=== PATIENT | female | born 1970 | race Caucasian/White ===

== ENCOUNTER 2019-10-10 12:26 | Emergency (ER) | payer SELFPAY ==
[2019-10-10 12:44] VITALS: BP 135/59; PULSE 88
[2019-10-10] MEDS ORDERED: Sodium Chloride 0.9% 1,000 ML IV ONE (12:50)
--- NOTE | 2019-10-10 12:58 | EDM.PDOC ---
ED HPI GENERAL MEDICAL PROBLEM - General Chief Complaint: Skin Complaint Stated Complaint: SWELLING ON BUTTOX Time Seen by Provider: 10/10/19 12:28 Source of Information: Reports: Patient History Limitations: Reports: No Limitations - History of Present Illness INITIAL COMMENTS - FREE TEXT/NARRATIVE: 49-year-old female presents with pain to the right buttock after getting an IM Toradol injection during her last ER visit for right flank pain. Her right flank pain is localized from the right posterior flank and radiates to the right hip. It is constant and moderate in severity, and radiates into her right leg. It is exacerbated by movement and palpation. She was seen in the ER in [place] about 1 week ago and received an IM Toradol injection at her right buttock for her right flank pain. She then started noticing swelling and pain to her right buttock 3 days ago. Denies fever, chills, nausea, vomiting. 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 ROS: A 10-point review of systems, other than pertinent positives and negatives as stated per HPI, is otherwise negative PHYSICAL EXAM General: AOx4, GCS = 15, moderate distress HEENT: dry mucous membrane Neck: supple, no meningismus, no Kernig or Brudzinski Cardiac: S1S2 RRR Respiratory: CTAB, no crackles or rales, no wheezing Abdomen: Soft, nontender, no rebound or guarding, nondistended, no pulsatile mass. Back: nontender to C/T/L spine Musculoskeletal: NVI distally, no deformity, 10cm area of tender induration and fluctuance to right buttock. Neuro: No focal deficits MEDICAL DECISION MAKING: I reviewed the patients past medical records, lab and radiographic findings. I discussed the case with family members. My differential diagnosis included: abscess, cellulitis, bacteremia, ureteralithiasis. Patient has significant risk factor with her history of IVDA , I am concerned for bacteremia and sepsis. However she is choosing to leave against medical advice prior to CT imaging. I personally explained to her that choosing to do so may result in permanent bodily harm or . I discussed at great length that without further evaluation and monitoring there may be unforeseen circumstances and deterioration causing permanent bodily harm or as a result of her choice. She is alert, oriented, and competent at this time. She states that she is aware of the serious risks as explained, but she still chooses to leave against medical advice. She is aware that they did not allow us to complete her evaluation, and there is still the possibility that an emergency condition could exist. This has been thoroughly explained to her and the patient has indicated understanding of such. She is assuming all risk and liability for such a condition, or for such a condition subsequently developing. She is doing so at their own free will, with a full knowledge of the potential consequences of these actions. She was encouraged to return at any time should they experience any changes about evaluation, or should they develop any new or worsening symptoms that concerns them. right buttock Pain Score (Numeric/FACES): 8 - Related Data Allergies Allergy/AdvReac Type Severity Reaction Status Date / Time haloperidol [From Haldol] Allergy Other Verified 10/10/19 12:44 Penicillins Allergy Other Verified 10/10/19 12:44 Home Meds: Home Meds . [No Known Home Meds] 10/10/19 [History] Past Medical History HEENT History: Reports: None Cardiovascular History: Reports: None Respiratory History: Reports: None Gastrointestinal History: Reports: None Genitourinary History: Reports: None MANAGER STATISTICAL PROGRAMMING History: Reports: None Musculoskeletal History: Reports: Arthritis Neurological History: Reports: None Psychiatric History: Reports: Anxiety Endocrine/Metabolic History: Reports: None Hematologic History: Reports: None Immunologic History: Reports: None Oncologic (Cancer) History: Reports: None Dermatologic History: Reports: None - Infectious Disease History Infectious Disease History: Reports: None - Past Surgical History Head Surgeries/Procedures: Reports: None HEENT Surgical History: Reports: None Cardiovascular Surgical History: Reports: None Respiratory Surgical History: Reports: None GI Surgical History: Reports: None Female Surgical History: Reports: None Endocrine Surgical History: Reports: None Neurological Surgical History: Reports: None Musculoskeletal Surgical History: Reports: None Dermatological Surgical History: Reports: None Social & Family History - Family History Family Medical History: Noncontributory - Tobacco Use Smoking Status *Q: Current Every Day Smoker Years of Tobacco use: 30 Packs/Tins Daily: 0.5 - Caffeine Use Caffeine Use: Reports: Coffee - Recreational Drug Use Recreational Drug Use: Yes Recreational Drug Type: Reports: Marijuana/Hashish Recreational Drug Use Frequency: Daily ED ROS GENERAL - Review of Systems Review Of Systems: See Below (see dictation) ED EXAM, SKIN/RASH Exam: See Below (see dictation) Course - Vital Signs Last Recorded V/S: Last Vital Signs Temp 96.5 F L 10/10/19 12:42 Pulse 88 10/10/19 12:42 Resp 18 10/10/19 12:42 BP 135/59 L 10/10/19 12:42 Pulse Ox 99 10/10/19 12:42 - Orders/Labs/Meds Orders: Active Orders 24 hr Category Date Time Status CULTURE BLOOD [BC] Stat Lab 10/10/19 13:35 Received CULTURE BLOOD [BC] Stat Lab 10/10/19 13:50 Results UA W/MICROSCOPIC [URIN] Stat Lab 10/10/19 12:59 Ordered Blood Culture x2 Reflex Set [OM.PC] Stat Oth 10/10/19 12:50 Ordered Labs: Laboratory Tests 10/10/19 10/10/19 10/10/19 Range/Units 13:35 13:35 13:35 WBC 12.14 H (4.0-11.0) K/uL RBC 4.44 (4.30-5.90) M/uL Hgb 12.4 (12.0-16.0) g/dL Hct 37.8 (36.0-46.0) % MCV 85.1 (80.0-98.0) fL MCH 27.9 (27.0-32.0) pg MCHC 32.8 (31.0-37.0) g/dL RDW Std Deviation 40.5 (28.0-62.0) fl RDW Coeff of Silvia 13 (11.0-15.0) % Plt Count 510 H (150-400) K/uL MPV 9.60 (7.40-12.00) fL Neut % (Auto) 72.3 (48.0-80.0) % Lymph % (Auto) 19.0 (16.0-40.0) % Perry % (Auto) 6.4 (0.0-15.0) % Eos % (Auto) 2.1 (0.0-7.0) % Baso % (Auto) 0.2 (0.0-1.5) % Neut # (Auto) 8.8 H (1.4-5.7) K/uL Lymph # (Auto) 2.3 (0.6-2.4) K/uL Perry # (Auto) 0.8 (0.0-0.8) K/uL Eos # (Auto) 0.3 (0.0-0.7) K/uL Baso # (Auto) 0.0 (0.0-0.1) K/uL Nucleated RBC % 0.0 /100WBC Nucleated RBCs # 0 K/uL Lactate 1.1 (0.20-2.00) mmol/L Sodium 140 (136-145) mmol/L Potassium 3.6 (3.5-5.1) mmol/L Chloride 101 (98-107) mmol/L Carbon Dioxide 28.6 (21.0-32.0) mmol/L BUN 16 (7.0-18.0) mg/dL Creatinine 0.6 (0.6-1.0) mg/dL Est Cr Clr Drug Dosing 87.73 mL/min Estimated GFR (MDRD) > 60.0 ml/min Glucose 87 (74-106) mg/dL Calcium 9.0 (8.5-10.1) mg/dL Total Bilirubin 0.6 (0.2-1.0) mg/dL AST 16 (15-37) IU/L ALT 11 L (14-63) IU/L Alkaline Phosphatase 103 (46-116) U/L Total Protein 8.0 (6.4-8.2) g/dL Albumin 3.5 (3.4-5.0) g/dL Globulin 4.5 H (2.6-4.0) g/dL Albumin/Globulin Ratio 0.8 L (0.9-1.6) Meds: Medications Discontinued Medications Generic Name Dose Route Start Last Admin Trade Name Renata PRN Reason Stop Dose Admin Sodium Chloride 1,000 mls @ 999 mls/hr 10/10/19 12:50 10/10/19 13:40 Normal Saline IV 10/10/19 13:50 999 mls/hr .Bolus ONE Administration - Re-Assessments/Exams Free Text/Narrative Re-Assessment/Exam: 10/10/19 16:15 she is choosing to leave against medical advice prior to CT imaging. I personally explained to her that choosing to do so may result in permanent bodily harm or . I discussed at great length that without further evaluation and monitoring there may be unforeseen circumstances and deterioration causing permanent bodily harm or as a result of her choice. She is alert, oriented, and competent at this time. She states that she is aware of the serious risks as explained, but she still chooses to leave against medical advice. She is aware that they did not allow us to complete her evaluation, and there is still the possibility that an emergency condition could exist. This has been thoroughly explained to her and the patient has indicated understanding of such. She is assuming all risk and liability for such a condition, or for such a condition subsequently developing. She is doing so at their own free will, with a full knowledge of the potential consequences of these actions. She was encouraged to return at any time should they experience any changes about evaluation, or should they develop any new or worsening symptoms that concerns them. Departure - Departure Time of Disposition: 16:26 Disposition: Against Medical Advice 07 Condition: Undetermined Clinical Impression: Abscess, IV drug user, Left against medical advice - Discharge Information *PRESCRIPTION DRUG MONITORING PROGRAM REVIEWED*: Not Applicable *COPY OF PRESCRIPTION DRUG MONITORING REPORT IN PATIENT MELANIA: Not Applicable Referrals: PCP,None [Primary Care Provider] - Forms: ED Department Discharge Additional Instructions: [facility] - Primary Care [address] [place] [id number] [address] [facility] - General Surgery Professional Building [address] [place] [address], [address] [place] [address] Sepsis Event Note - Evaluation Sepsis Screening Result: No Definite Risk - Focused Exam Vital Signs: Vital Signs Temp Pulse Resp BP Pulse Ox 10/10/19 12:42 96.5 F L 88 18 135/59 L 99 Date Exam was Performed: 10/10/19 Time Exam was Performed: 16:24 - My Orders Last 24 Hours: My Active Orders 10/10/19 12:50 Blood Culture x2 Reflex Set [OM.PC] Stat 10/10/19 12:59 UA W/MICROSCOPIC [URIN] Stat 10/10/19 13:35 CULTURE BLOOD [BC] Stat 10/10/19 13:50 CULTURE BLOOD [BC] Stat - Assessment/Plan Last 24 Hours: My Active Orders 10/10/19 12:50 Blood Culture x2 Reflex Set [OM.PC] Stat 10/10/19 12:59 UA W/MICROSCOPIC [URIN] Stat 10/10/19 13:35 CULTURE BLOOD [BC] Stat 10/10/19 13:50 CULTURE BLOOD [BC] Stat
[2019-10-10 14:50] LABS: BLOOD UREA NITROGEN,BUN 16 mg/dL (7.0-18.0); CARBON DIOXIDE,CO2 28.6 mmol/L (21.0-32.0); CHLORIDE,CL 101 mmol/L (98-107); GLUCOSE RANDOM 87 mg/dL (74-106); POTASSIUM,K 3.6 mmol/L (3.5-5.1); SODIUM,NA 140 mmol/L (136-145)
== END 2019-10-10 15:44 | disposition left against medical advice (07) ==
LOC: MW.ED 12:26
DX: L02.31 Cutaneous abscess of buttock (principal); F11.10 Opioid abuse, uncomplicated; F17.210 Nicotine dependence, cigarettes, uncomplicated; Z88.8 Allergy status to other drugs, medicaments and biological substances; Z88.0 Allergy status to penicillin
CPT/HCPCS: 36415; 80053; 83605; 85025; 87040; 99284; J7030; 99282

== ENCOUNTER 2019-10-11 22:04 | Emergency (ER) | payer SELFPAY ==
[2019-10-11] MEDS ORDERED: Ondansetron 4 MG/2 ML SDV IVPUSH ONE (22:22)
[2019-10-11] MEDS ORDERED: Morphine 4 MG/ML Syringe IVPUSH ONE (22:22)
[2019-10-11] MEDS ORDERED: Sodium Chloride 0.9% 2.5 ML Syringe FLUSH PRN (22:22)
[2019-10-11] MEDS ORDERED: Ketorolac 15 MG/ML SDV IVPUSH ONE (22:22)
[2019-10-11] MEDS ORDERED: Sodium Chloride 0.9% 1,000 ML IV ONE (22:22)
[2019-10-11] MEDS ORDERED: Sodium Chloride 0.9% 10 ML Syringe FLUSH PRN (22:22)
--- NOTE | 2019-10-11 22:35 | EDM.PDOC ---
ED HPI GENERAL MEDICAL PROBLEM - General Chief Complaint: Skin Complaint Stated Complaint: ABCESS ON BUTTOCKS Time Seen by Provider: 10/11/19 22:21 Source of Information: Reports: Patient History Limitations: Reports: No Limitations - History of Present Illness INITIAL COMMENTS - FREE TEXT/NARRATIVE: History of present illness: [Patient was seen recently here and left AMA prior to full work-up being performed. They wanted to do a CT scan to determine how extensive the abscess in her butt cheek is. She left prior to this being accomplished. She presents back to the ED this evening with worsening pain and swelling over that site. She denies fever or chills, denies chest pain or shortness of breath. States that about a week ago she was in [place] and went to an ER there because she was having some lower back pain. They did a work-up including x-rays and labs and told her that she had some arthritis in her back and they gave her a Toradol shot in her right butt cheek. The area that shot developed a small bump and that eventually turned into what appears to be an abscess. Patient did not have the abscess drained on her previous visit to the emergency department, she left AMA.] Review of systems: As per history of present illness and below otherwise all systems reviewed and negative. Past medical history: As per history of present illness and as reviewed below otherwise noncontributory. Surgical history: As per history of present illness and as reviewed below otherwise noncontributory. Social history: No reported history of drug or alcohol abuse. Family history: As per history of present illness and as reviewed below otherwise noncontributory. Physical exam: General: Awake, alert, no acute distress, A&O X3. HEENT: Atraumatic, normocephalic, pupils reactive, negative for conjunctival pallor or scleral icterus, mucous membranes moist, throat clear, neck supple, nontender, trachea midline. Lungs: Clear to auscultation, breath sounds equal bilaterally, chest nontender. Heart: RRR, normal S1S2, no JVD. Abdomen: Soft, nondistended, nontender. Negative for masses or hepatosplenomegaly. Negative for costovertebral tenderness. Pelvis: Stable nontender. Genitourinary: Deferred. Rectal: Deferred. SKIN: Patient has area of tenderness, swelling, mild erythema, induration of the right butt cheek that is about 6X6 cm in size Extremities: Atraumatic, no edema, Neurovascular unremarkable. Neuro: Motor and sensory grossly intact throughout. Exam nonfocal. Diagnostics: [] Therapeutics: [] Impression: [] Plan: [] Definitive disposition and diagnosis as appropriate pending reevaluation and review of above. R buttock Pain Score (Numeric/FACES): 9 - Related Data Allergies Allergy/AdvReac Type Severity Reaction Status Date / Time haloperidol [From Haldol] Allergy Other Verified 10/11/19 22:22 Penicillins Allergy Other Verified 10/11/19 22:22 Home Meds: Home Meds Sulfamethoxazole/Trimethoprim [Bactrim Ds Tablet] 1 each PO BID #20 tablet 10/11 [Rx] cephALEXin [Keflex] 500 mg PO QID #40 cap 10/12/19 [Rx] Past Medical History HEENT History: Reports: None Cardiovascular History: Reports: None Respiratory History: Reports: None Gastrointestinal History: Reports: None Genitourinary History: Reports: None PSYCHOLOGICAL OPERATIONS History: Reports: None Musculoskeletal History: Reports: Arthritis Neurological History: Reports: None Psychiatric History: Reports: Anxiety, Bipolar, Depression Endocrine/Metabolic History: Reports: None Hematologic History: Reports: None Immunologic History: Reports: None Oncologic (Cancer) History: Reports: None Dermatologic History: Reports: None - Infectious Disease History Infectious Disease History: Reports: None - Past Surgical History Head Surgeries/Procedures: Reports: None HEENT Surgical History: Reports: None Cardiovascular Surgical History: Reports: None Respiratory Surgical History: Reports: None GI Surgical History: Reports: None Female Surgical History: Reports: None Endocrine Surgical History: Reports: None Neurological Surgical History: Reports: None Musculoskeletal Surgical History: Reports: None Dermatological Surgical History: Reports: None Social & Family History - Family History Family Medical History: Noncontributory - Tobacco Use Smoking Status *Q: Current Every Day Smoker Years of Tobacco use: 25 Packs/Tins Daily: 0.5 - Caffeine Use Caffeine Use: Reports: Coffee - Recreational Drug Use Recreational Drug Use: Yes Recreational Drug Type: Reports: Marijuana/Hashish Recreational Drug Use Frequency: Daily ED ROS GENERAL - Review of Systems Review Of Systems: Comprehensive ROS is negative, except as noted in HPI. ED EXAM, SKIN/RASH Exam: See Below (see h and p) ED SKIN PROCEDURES - I&D Skin Prep: Providone-Iodine (Betadine) Local Anesthesia: Lidocaine: 1% Plain Local Anesthetic Volume: 5cc Area Incised With: 11 Blade Drainage: Purulent, Large Amount Probed to Break Up Loculations: Yes Packed With: 1/2 in. Iodoform Sterile Dressinx4(s) Complications: No Course - Vital Signs Text/Narrative:: CT scan shows that the abscess is located in the subcutaneous tissue of the right buttocks, does not appear to extend deeper than that. She has associated cellulitis in the soft tissue on the CT which is consistent with my physical exam findings. Remainder of the work-up is largely unremarkable and reassuring. She received a dose of IV vancomycin here in the ED and I believe she is appropriate for discharge home on Bactrim and Keflex for 10 days. Informed her to have the packing removed in about 48 hours and to follow-up with PCP to get a wound check. Patient is comfortable this plan. Return precautions provided. Otherwise well-appearing and stable at discharge. Last Recorded V/S: Last Vital Signs Temp 35.9 C L 10/11/19 22:18 Pulse 89 10/12/19 01:45 Resp 17 10/12/19 01:45 BP 98/53 L 10/12/19 01:45 Pulse Ox 96 10/12/19 01:45 - Orders/Labs/Meds Orders: Active Orders 24 hr Category Date Time Status CULTURE BLOOD [BC] Stat Lab 10/11/19 22:24 Results CULTURE BLOOD [BC] Stat Lab 10/11/19 22:24 Results Sodium Chloride 0.9% [Saline Flush] Med 10/11/19 22:22 Active 10 ml FLUSH ASDIRECTED PRN Sodium Chloride 0.9% [Saline Flush] Med 10/11/19 22:22 Active 2.5 ml FLUSH ASDIRECTED PRN Blood Culture x2 Reflex Set [OM.PC] Stat Oth 10/11/19 22:22 Ordered Saline Lock Insert [OM.PC] Stat Oth 10/11/19 22:22 Ordered Medication Orders Sodium Chloride (Saline Flush) 10 ml FLUSH ASDIRECTED PRN PRN Reason: Keep Vein Open Sodium Chloride (Saline Flush) 2.5 ml FLUSH ASDIRECTED PRN PRN Reason: Keep Vein Open Labs: Laboratory Tests 10/12/19 10/12/19 10/12/19 Range/Units 00:23 00:23 00:35 WBC 12.05 H (4.0-11.0) K/uL RBC 3.60 L (4.30-5.90) M/uL Hgb 10.1 L (12.0-16.0) g/dL Hct 30.8 L (36.0-46.0) % MCV 85.6 (80.0-98.0) fL MCH 28.1 (27.0-32.0) pg MCHC 32.8 (31.0-37.0) g/dL RDW Std Deviation 37.3 (28.0-62.0) fl RDW Coeff of Silvia 12 (11.0-15.0) % Plt Count 349 (150-400) K/uL MPV 9.90 (7.40-12.00) fL Neut % (Auto) 78.4 (48.0-80.0) % Lymph % (Auto) 12.9 L (16.0-40.0) % Perry % (Auto) 7.0 (0.0-15.0) % Eos % (Auto) 1.5 (0.0-7.0) % Baso % (Auto) 0.2 (0.0-1.5) % Neut # (Auto) 9.5 H (1.4-5.7) K/uL Lymph # (Auto) 1.6 (0.6-2.4) K/uL Perry # (Auto) 0.8 (0.0-0.8) K/uL Eos # (Auto) 0.2 (0.0-0.7) K/uL Baso # (Auto) 0.0 (0.0-0.1) K/uL Lactate 1.6 (0.20-2.00) mmol/L Sodium 136 (136-145) mmol/L Potassium 3.0 L (3.5-5.1) mmol/L Chloride 102 (98-107) mmol/L Carbon Dioxide 25.7 (21.0-32.0) mmol/L BUN 13 (7.0-18.0) mg/dL Creatinine 0.6 (0.6-1.0) mg/dL Est Cr Clr Drug Dosing 87.73 mL/min Estimated GFR (MDRD) > 60.0 ml/min Glucose 101 (74-106) mg/dL Calcium 8.0 L (8.5-10.1) mg/dL Total Bilirubin 0.6 (0.2-1.0) mg/dL AST 14 L (15-37) IU/L ALT 6 L (14-63) IU/L Alkaline Phosphatase 78 (46-116) U/L Total Protein 6.8 (6.4-8.2) g/dL Albumin 2.6 L (3.4-5.0) g/dL Globulin 4.2 H (2.6-4.0) g/dL Albumin/Globulin Ratio 0.6 L (0.9-1.6) HCG, Qual (NEG) 10/12/19 Range/Units 00:35 WBC (4.0-11.0) K/uL RBC (4.30-5.90) M/uL Hgb (12.0-16.0) g/dL Hct (36.0-46.0) % MCV (80.0-98.0) fL MCH (27.0-32.0) pg MCHC (31.0-37.0) g/dL RDW Std Deviation (28.0-62.0) fl RDW Coeff of Silvia (11.0-15.0) % Plt Count (150-400) K/uL MPV (7.40-12.00) fL Neut % (Auto) (48.0-80.0) % Lymph % (Auto) (16.0-40.0) % Perry % (Auto) (0.0-15.0) % Eos % (Auto) (0.0-7.0) % Baso % (Auto) (0.0-1.5) % Neut # (Auto) (1.4-5.7) K/uL Lymph # (Auto) (0.6-2.4) K/uL Perry # (Auto) (0.0-0.8) K/uL Eos # (Auto) (0.0-0.7) K/uL Baso # (Auto) (0.0-0.1) K/uL Lactate (0.20-2.00) mmol/L Sodium (136-145) mmol/L Potassium (3.5-5.1) mmol/L Chloride (98-107) mmol/L Carbon Dioxide (21.0-32.0) mmol/L BUN (7.0-18.0) mg/dL Creatinine (0.6-1.0) mg/dL Est Cr Clr Drug Dosing mL/min Estimated GFR (MDRD) ml/min Glucose (74-106) mg/dL Calcium (8.5-10.1) mg/dL Total Bilirubin (0.2-1.0) mg/dL AST (15-37) IU/L ALT (14-63) IU/L Alkaline Phosphatase (46-116) U/L Total Protein (6.4-8.2) g/dL Albumin (3.4-5.0) g/dL Globulin (2.6-4.0) g/dL Albumin/Globulin Ratio (0.9-1.6) HCG, Qual NEGATIVE (NEG) Meds: Medications Generic Name Dose Route Start Last Admin Trade Name Freq PRN Reason Stop Dose Admin Sodium Chloride 10 ml 10/11/19 22:22 Saline Flush FLUSH ASDIRECTED PRN Keep Vein Open Sodium Chloride 2.5 ml 10/11/19 22:22 Saline Flush FLUSH ASDIRECTED PRN Keep Vein Open Discontinued Medications Generic Name Dose Route Start Last Admin Trade Name Freq PRN Reason Stop Dose Admin Sodium Chloride 1,000 mls @ 1,000 mls/hr 10/11/19 22:22 10/12/19 00:03 Normal Saline IV 10/11/19 23:21 1,000 mls/hr .Bolus ONE Administration Vancomycin HCl 1,500 mg/ 100 mls @ 100 mls/hr 10/11/19 22:22 10/12/19 00:38 Sodium Chloride IV 10/11/19 23:21 Not Given ONETIME ONE Vancomycin HCl 1.5 gm/ Premix 300 mls @ 300 mls/hr 10/12/19 00:21 10/12/19 00 :38 IV 10/12/19 00:22 300 mls/hr ONETIME ONE Administration Iopamidol 100 ml 10/12/19 01:41 10/12/19 01:42 Isovue Multipack-370 (76%) IVPUSH 10/12/19 01:42 100 ml ONETIME STA Administration Ketorolac Tromethamine 15 mg 10/11/19 22:22 10/12/19 00:05 Toradol IVPUSH 10/11/19 22:23 15 mg ONETIME ONE Administration Lidocaine HCl 10 ml 10/12/19 02:03 Xylocaine 1% INJECT 10/12/19 02:04 ONETIME ONE Lidocaine HCl Confirm 10/12/19 02:16 Xylocaine-Mpf 1% Administered 10/12/19 02:17 Dose 10 ml .ROUTE .STK-MED ONE Morphine Sulfate 4 mg 10/11/19 22:22 10/12/19 00:08 Morphine IVPUSH 10/11/19 22:23 4 mg ONETIME ONE Administration Ondansetron HCl 4 mg 10/11/19 22:22 10/12/19 00:03 Zofran IVPUSH 10/11/19 22:23 4 mg ONETIME ONE Administration Departure - Departure Time of Disposition: 02:36 Disposition: Home, Self-Care 01 Condition: Good Clinical Impression: Abscess, Abscess of buttock, right - Discharge Information Prescriptions: cephALEXin [Keflex] 500 mg PO QID #40 cap Sulfamethoxazole/Trimethoprim [Bactrim Ds Tablet] 1 each PO BID #20 tablet Instructions: Incision and Drainage, Care After Referrals: PCP,None [Primary Care Provider] - Forms: ED Department Discharge Additional Instructions: Take all medications as prescribed. Follow-up with primary care doctor. Return to the ER with any new or worsening symptoms. The following information is given to patients seen in the emergency department who are being discharged to home. This information is to outline your options for follow-up care. We provide all patients seen in our emergency department with a follow-up referral. The need for follow-up, as well as the timing and circumstances, are variable depending upon the specifics of your emergency department visit. If you don't have a primary care physician on staff, we will provide you with a referral. We always advise you to contact your personal physician following an emergency department visit to inform them of the circumstance of the visit and for follow-up with them and/or the need for any referrals to a consulting specialist. The emergency department will also refer you to a specialist when appropriate. This referral assures that you have the opportunity for follow-up care with a specialist. All of these measure are taken in an effort to provide you with optimal care, which includes your follow-up. Under all circumstances we always encourage you to contact your private physician who remains a resource for coordinating your care. When calling for follow-up care, please make the office aware that this follow-up is from your recent emergency room visit. If for any reason you are refused follow-up, please contact the [facility] Emergency Department at and asked to speak to the emergency department charge nurse. Sepsis Event Note (ED) - Evaluation Sepsis Screening Result: No Definite Risk - Focused Exam Vital Signs: Vital Signs Temp Pulse Resp BP Pulse Ox 10/12/19 01:45 89 17 98/53 L 96 10/12/19 00:05 91 17 104/56 L 94 L 10/11/19 22:18 35.9 C L 100 18 123/70 96 - My Orders Last 24 Hours: My Active Orders 10/11/19 22:22 Sodium Chloride 0.9% [Saline Flush] 10 ml FLUSH ASDIRECTED PRN Sodium Chloride 0.9% [Saline Flush] 2.5 ml FLUSH ASDIRECTED PRN Blood Culture x2 Reflex Set [OM.PC] Stat Saline Lock Insert [OM.PC] Stat 10/11/19 22:24 CULTURE BLOOD [BC] Stat CULTURE BLOOD [BC] Stat - Assessment/Plan Last 24 Hours: My Active Orders 10/11/19 22:22 Sodium Chloride 0.9% [Saline Flush] 10 ml FLUSH ASDIRECTED PRN Sodium Chloride 0.9% [Saline Flush] 2.5 ml FLUSH ASDIRECTED PRN Blood Culture x2 Reflex Set [OM.PC] Stat Saline Lock Insert [OM.PC] Stat 10/11/19 22:24 CULTURE BLOOD [BC] Stat CULTURE BLOOD [BC] Stat
--- NOTE | 2019-10-12 00:02 | PCM.SN.2 ---
- Free Text/Narrative Note: Called to ER for IV start after ER staff unsuccessful. IV started in left lower forearm with 22g angiocath after two other attempts. Flushes easily. Taped securely.
[2019-10-12 01:03] LABS: BLOOD UREA NITROGEN,BUN 13 mg/dL (7.0-18.0); CARBON DIOXIDE,CO2 25.7 mmol/L (21.0-32.0); CHLORIDE,CL 102 mmol/L (98-107); GLUCOSE RANDOM 101 mg/dL (74-106); SODIUM,NA 136 mmol/L (136-145)
[2019-10-12] MEDS ORDERED: Iopamidol 755 MG/ML 500 ML Multipack Bottle IVPUSH STA (01:41)
[2019-10-12 01:52] VITALS: PULSE 89
[2019-10-12] MEDS ORDERED: Lidocaine 1% 10 ML MDV INJECT ONE (02:03)
--- NOTE | 2019-10-12 02:05 | CT ---
INDICATION: Abscess of the right buttock. Concern for deep space infection. COMPARISON: None available TECHNIQUE: CT examination of the abdomen and pelvis was performed with the uneventful intravenous administration of 100 cc of Isovue 370 while 3 mm thick axial sections were obtained from the lung bases through the pubic symphysis. Oral contrast was not administered. Please note that all CT scans at this facility use dose modulation, iterative reconstruction, and/or weight-based dosing when appropriate to reduce radiation dose to as low as reasonably achievable. FINDINGS: There is a subcutaneous abscess in the right posterior-lateral buttock measuring 4.3 x 3.3 by 3.0 centimeters with prominent surrounding cellulitis. There is extension of inflammation into the superficial aspect of the right gluteus eveline muscle, with inflammatory stranding and thickening of the muscle, but without definite abscess. There is moderate inflammatory thickening of the medial inferior buttocks consistent with cellulitis extending inferiorly. There is mild prominence of right inguinal and right external iliac lymph nodes, without lymphadenopathy. In the abdomen, the liver, spleen, pancreas, and adrenals are normal in appearance. There are small cysts in both kidneys. The largest is in the interpolar left kidney measuring 0.9 centimeters. The kidneys are otherwise normal in appearance. The gallbladder is normal in appearance. The abdominal aorta is normal in caliber with no sign of dilatation. There is no sign of retroperitoneal mass or adenopathy. There is a moderate amount of fluid in the mildly distended inferior thoracic esophagus with mild wall thickening, consistent with chronic reflux esophagitis. The stomach, loops of small bowel, and colon in the abdomen are normal in appearance. In the pelvis, the appendix is normal in appearance with no sign of inflammatory process. The loops of small bowel and colon in the pelvis are normal in appearance. The uterus and adnexal regions are normal in appearance. The urinary bladder is normal in appearance. There is no sign of pelvic or inguinal mass or adenopathy. There is no sign of free air or free fluid in the abdomen or pelvis. The lung bases are clear. There is mild scoliosis of the lumbar spine convex towards the left. There is prominent disc degenerative disease from L3-4 through L5-S1. There is mild depression of the endplates of the vertebral bodies adjacent to the L2-3 disc space. There is mild disc degenerative disease at L2-3. There is moderate disc degenerative disease at T9-10 and T10-11. IMPRESSION: Moderate abscess in the subcutaneous fat of the right posterior-lateral buttock, with prominent surrounding cellulitis. Inflammatory thickening of the lateral aspect of the adjacent right gluteus eveline muscle without definite abscess. Moderate cellulitis involving the medial inferior buttocks bilaterally. CT of the abdomen shows moderate dilatation and moderate wall thickening of the distal thoracic esophagus suggesting chronic reflux esophagitis. CT of the pelvis shows mild hypertrophy of right inguinal and internal iliac lymph nodes consistent with reactive lymph nodes, without adenopathy. Please note that all CT scans at this facility use dose modulation, iterative reconstruction, and/or weight-based dosing when appropriate to reduce radiation dose to as low as reasonably achievable. Dictated by Charly Ramires MD @ Oct 12 2019 1:48AM Signed by Dr. Charly Ramires @ Oct 12 2019 2:04AM
[2019-10-12 02:36] VITALS: BP 115/71
== END 2019-10-12 03:20 | disposition home or self-care (01) ==
LOC: MW.ED 22:04
DX: L02.31 Cutaneous abscess of buttock (principal); Z88.8 Allergy status to other drugs, medicaments and biological substances; Z88.0 Allergy status to penicillin; F17.210 Nicotine dependence, cigarettes, uncomplicated
CPT/HCPCS: 10061; 36415; 74177; 80053; 83605; 84703; 85025; 87040; 96365; 96366; 96375; 99283; J1885; J2001; J2270; J2405; J3370; J7030; Q9967; 36410; 99282